=== PATIENT | female | born 1955 | race African-American/Black ===

== ENCOUNTER 2021-10-09 06:42 | Emergency (ER) | payer OTHER ==
[2021-10-09] MEDS ORDERED: HYDROcodone/Acetaminophen 5/325 mg Tablet ONE (07:56)
== END 2021-10-09 10:04 | disposition home or self-care (01) ==
LOC: ERS 06:42
DX: M79.89 Other specified soft tissue disorders (principal); M79.671 Pain in right foot; I10 Essential (primary) hypertension; E11.9 Type 2 diabetes mellitus without complications; Z79.899 Other long term (current) drug therapy; Z79.82 Long term (current) use of aspirin